=== PATIENT | male | born 1935 | race Caucasian/White ===

== ENCOUNTER 2017-07-14 20:30 | Emergency (ER) | payer MEDICARE ==
[~2017-07-14] VITALS: Ht 177.8 cm; Wt 90.1 kg
[2017-07-14 20:56] LABS: HEMATOCRIT 40.9 % (39.2-51.8); HEMOGLOBIN 13.8 g/dL (13.7-18.0); WHITE BLOOD COUNT 11.1 x10^3/uL (3.4-10)
[2017-07-14] MEDS ORDERED: ALPR-475 PO (21:48)
[2017-07-14] MEDS ORDERED: CLOP75TA52 PO (21:48)
[2017-07-14] MEDS ORDERED: AMLO10TA4 PO (21:48)
[2017-07-14] MEDS ORDERED: LEVO175T36 PO (21:48)
[2017-07-14] MEDS ORDERED: ATOR80TA PO (21:48)
[2017-07-14] MEDS ORDERED: HYDR12.58 PO (21:48)
[2017-07-14] MEDS ORDERED: ASPI-515 PO (21:48)
[2017-07-14] MEDS ORDERED: SERT100T PO (21:48)
[2017-07-14] MEDS ORDERED: TEST75GE TD (21:48)
[2017-07-14] MEDS ORDERED: LISI-170 PO (21:48)
[2017-07-14 22:28] VITALS: BP 158/60
[2017-07-14] MEDS ORDERED: BACITRACIN ZINC OINT 500U/GM, 0.9 GM ONE (22:36)
== END 2017-07-14 23:41 | disposition home or self-care (01) ==
LOC: ED 23:29
DX: S00.83XA Contusion of other part of head, initial encounter (principal); S00.12XA Contusion of left eyelid and periocular area, initial encounter; I10 Essential (primary) hypertension; W01.0XXA Fall on same level from slipping, tripping and stumbling without subsequent striking against object, initial encounter; Y93.89 Activity, other specified; Y92.009 Unspecified place in unspecified non-institutional (private) residence as the place of occurrence of the external cause; Y99.9 Unspecified external cause status
CPT/HCPCS: 36415; 70450; 70486; 72125; 85025; 85610; 99285

== ENCOUNTER 2019-03-17 12:22 | Inpatient (IN) | payer MEDICARE ==
[~2019-03-17] VITALS: Ht 177.8 cm; Wt 91.4 kg
[2019-03-17] VITALS (7 sets, daily range): BP systolic 108–142; BP diastolic 38–67
[~2019-03-17 12:22] MED LIST: ALPR-475 PO; AMLO10TA4 PO; ASPI-515 PO; ATOR80TA PO; CLOP75TA52 PO; HYDROCHLOROTH12.5 MG PO; LEVO175T36 PO; LISI-170 PO; SERT100T PO; TEST75GE TD
[2019-03-17] MEDS ORDERED: SODIUM CHLORIDE 0.9% 1,000ML IVBOLUS ONE (13:00)
[2019-03-17 13:18] LABS: MEAN CORPUSCULAR HEMOGLOBIN 22.8 pg (27.5-34.5); MEAN CORPUSCULAR VOLUME 75.8 fL (81-97); PLATELET COUNT 270 x10^3/uL (130-400); RED CELL DISTRIBUTION WIDTH 17.5 % (9.4-14.8)
--- NOTE | 2019-03-17 13:23 | NUR ---
Plan of care discussed with patient and his , verbalize understanding. Call may within reach.
[2019-03-17 13:27] LABS: PROTHROMBIN TIME 10.5 Seconds (9.6-11.5)
[2019-03-17 13:28] LABS: ALANINE AMINOTRANSFERASE 16 U/L (12-78); ALBUMIN 3.5 g/dL (3.4-5.0); ANION GAP 5 mmol/L (5-15); CALCIUM 8.9 mg/dL (8.5-10.1); CHLORIDE 111 mmol/L (98-107); CREATININE 1.81 mg/dL (0.7-1.3)
[2019-03-17 13:30] LABS: ALKALINE PHOSPHATASE 34 U/L (45-117); BASOPHILS # (AUTO) 0.02 x10^3/uL (0-0.1); BASOPHILS % (AUTO) 0 % (0-1); BILIRUBIN,TOTAL 0.3 mg/dL (0.2-1.0); EOSINOPHILS # (AUTO) 0.05 x10^3/uL (0-0.4); EOSINOPHILS % (AUTO) 1 % (1-7); LYMPHOCYTES # (AUTO) 1.83 x10^3/uL (1-3.4); LYMPHOCYTES % (AUTO) 30 % (22-44); MD SCAN; MONOCYTES # (AUTO) 0.63 x10^3/uL (0.2-0.8); MONOCYTES % (AUTO) 11 % (2-9); NEUTROPHILS # (AUTO) 3.53 x10^3/uL (1.8-6.8); NEUTROPHILS % (AUTO) 58 % (42-75); TOTAL PROTEIN 6.9 g/dL (6.4-8.2)
[2019-03-17] MEDS ORDERED: FERR324T18 PO (15:18)
[2019-03-17] MEDS ORDERED: ASCO10004 PO ×2 (15:18→15:21)
[2019-03-17] MEDS ORDERED: TRAZ50TA66 PO (15:18)
[2019-03-17] MEDS ORDERED: MULT-257 PO (15:18)
[2019-03-17] MEDS ORDERED: TURM500C4 PO (15:18)
[2019-03-17] MEDS ORDERED: ROSU20TA2 PO (15:18)
[2019-03-17] MEDS ORDERED: LUTEIN/ZEAXANTHIN PO (15:18)
[2019-03-17] MEDS ORDERED: LUTEIN/ZEAXANTHIN (15:18)
[2019-03-17] MEDS ORDERED: CALCIUM PEG (15:18)
[2019-03-17] MEDS ORDERED: CALCIUM PO (15:18)
[2019-03-17] MEDS ORDERED: VITAMIN D3 50 MCG PO (15:21)
[2019-03-17] MEDS ORDERED: VITAMIN B12 1000MCG PO (15:21)
--- NOTE | 2019-03-17 15:21 | NUR ---
Blood infusing, no complaints or requests at this time, see transfusion record for vital signs.
[2019-03-17] MEDS ORDERED: PANTOPRAZOLE 80 MG in SODIUM CHLORIDE 0.9% 50 ML IV ONE (15:30)
--- NOTE | 2019-03-17 16:10 | NUR ---
Patient denies symptoms at this time, does not appear to be in acute distress, blood infusing. Request sent to pharmacy for protonix infusion. Second IV established.
[2019-03-17] MEDS: PANTOPRAZOLE 80 MG in SODIUM CHLORIDE 0.9% 100 ML IV SCH (16:55)
[2019-03-17] MEDS ORDERED: OXYcodone IR 5MG TABLET PO PRN (17:00)
[2019-03-17] MEDS ORDERED: KETOROLAC 60 MG/2 ML IV PRN (17:00)
[2019-03-17] MEDS ORDERED: DOCUSATE 100 MG CAPSULE PO PRN (17:00)
[2019-03-17] MEDS ORDERED: ACETAMINOPHEN 325 MG TABLET PO PRN (17:00)
[2019-03-17] MEDS ORDERED: morphine SULFATE 10 MG/ML, 1ML IVPush PRN (17:00)
[2019-03-17] MEDS ORDERED: hydrALAzine 20 MG/ML, 1ML IVPush PRN (17:00)
[2019-03-17] MEDS ORDERED: ONDANSETRON 2MG/ML, 2ML IVPush PRN (17:00)
--- NOTE | 2019-03-17 18:08 | NUR ---
Patient resting in [facility] at this time watching television with his at bedside. Clear liquid tray provided. Call may within reach.
[2019-03-17 18:15] LABS: BASOPHILS # (AUTO) 0.03 x10^3/uL (0-0.1); BASOPHILS % (AUTO) 1 % (0-1); EOSINOPHILS # (AUTO) 0.06 x10^3/uL (0-0.4); EOSINOPHILS % (AUTO) 1 % (1-7); LYMPHOCYTES # (AUTO) 1.83 x10^3/uL (1-3.4); LYMPHOCYTES % (AUTO) 33 % (22-44); MD NO; MEAN CORPUSCULAR HEMOGLOBIN 24.5 pg (27.5-34.5); MEAN CORPUSCULAR HGB CONC 31.6 g/dL (33.2-36.2); MEAN CORPUSCULAR VOLUME 77.6 fL (81-97); MEAN PLATELET VOLUME 8.2 fL (7.4-10.4); MONOCYTES # (AUTO) 0.44 x10^3/uL (0.2-0.8); MONOCYTES % (AUTO) 8 % (2-9); NEUTROPHILS # (AUTO) 3.27 x10^3/uL (1.8-6.8); NEUTROPHILS % (AUTO) 58 % (42-75); PLATELET COUNT 219 x10^3/uL (130-400); RED CELL DISTRIBUTION WIDTH 18.6 % (9.4-14.8)
--- NOTE | 2019-03-17 19:45 | NUR ---
PT STATES HE IS FEELING SLIGHTLY ANXIOUS. PT STATES HE HAS PREVIOUSLY TAKEN 0.5MG XANAX FOR THIS. [facility] KYLE WAS CONSULTED AND AGREES TO ORDERING XANAX. XANAX ADDED TO PTS MED LIST.
--- NOTE | 2019-03-17 20:44 | NUR ---
RECLINER WAS FOUND FOR PTS SPOUSE. PT AND SPOUSE MUCH APPRECIATIVE. POC DISCUSSED. PT REQUESTING A GREASY CHEESEBURGER . POC DISCUSSED. PT TOLERATING CLEAR LIQUID DIET AT THIS TIME. PT AWARE OF HIS MORNING PROCEDURES. PT AND SPOUSE DENY FURTHER NEEDS AT THIS TIME.
[2019-03-17] MEDS ORDERED: ALPR1TAB2 PO (20:48)
[2019-03-17] MEDS ORDERED: TRAZODONE 50MG TABLET ONE (20:52)
[2019-03-17] MEDS: ATORVASTATIN 80 MG TABLET PO SCH (20:54)
[2019-03-17] MEDS: TRAZODONE 50MG TABLET PO SCH (20:54)
[2019-03-17] MEDS ORDERED: SERTRALINE 100MG TABLET PO SCH (21:00)
[2019-03-17] MEDS ORDERED: LEVOTHYROXINE 175 MCG TABLET PO SCH (21:00)
[2019-03-17] MEDS: D5%-LACTATED RINGERS 1,000 ML IV SCH (23:59)
[2019-03-18] VITALS (7 sets, daily range): BP systolic 114–171; BP diastolic 40–68
[2019-03-18] MEDS: PANTOPRAZOLE 80 MG in SODIUM CHLORIDE 0.9% 100 ML IV SCH ×2 (00:53→14:58)
[2019-03-18] MEDS: D5%-LACTATED RINGERS 1,000 ML IV SCH ×4 (01:01→17:30)
[2019-03-18] MEDS ORDERED: ASPIRIN 325 MG TABLET EC PO SCH (06:00)
[2019-03-18 06:16] LABS: INTERNATIONAL NORMALIZED RATIO 1.08 (0.93-1.1); PROTHROMBIN TIME 11.3 Seconds (9.6-11.5)
[2019-03-18 06:23] LABS: BASOPHILS # (AUTO) 0.02 x10^3/uL (0-0.1); BASOPHILS % (AUTO) 0 % (0-1); EOSINOPHILS # (AUTO) 0.07 x10^3/uL (0-0.4); EOSINOPHILS % (AUTO) 2 % (1-7); LYMPHOCYTES # (AUTO) 1.61 x10^3/uL (1-3.4); LYMPHOCYTES % (AUTO) 33 % (22-44); MD NO; MEAN CORPUSCULAR HEMOGLOBIN 23.8 pg (27.5-34.5); MEAN CORPUSCULAR HGB CONC 30.9 g/dL (33.2-36.2); MEAN CORPUSCULAR VOLUME 77.2 fL (81-97); MEAN PLATELET VOLUME 7.9 fL (7.4-10.4); MONOCYTES # (AUTO) 0.45 x10^3/uL (0.2-0.8); MONOCYTES % (AUTO) 9 % (2-9); NEUTROPHILS # (AUTO) 2.75 x10^3/uL (1.8-6.8); NEUTROPHILS % (AUTO) 56 % (42-75); PLATELET COUNT 204 x10^3/uL (130-400); RED CELL DISTRIBUTION WIDTH 18.5 % (9.4-14.8)
[2019-03-18 06:23] LABS: CHLORIDE 113 mmol/L (98-107)
[2019-03-18 06:34] LABS: % IRON SATURATION 4 % (20-55); ALANINE AMINOTRANSFERASE 11 U/L (12-78); ALKALINE PHOSPHATASE 25 U/L (45-117); ANION GAP 5 mmol/L (5-15); BILIRUBIN,TOTAL 0.4 mg/dL (0.2-1.0); CALCIUM 8.2 mg/dL (8.5-10.1); IRON LEVEL 12 mcg/dL (65-175); TOTAL IRON BINDING CAPACITY 325 mcg/dL (250-450); TOTAL PROTEIN 5.8 g/dL (6.4-8.2)
[2019-03-18] MEDS ORDERED: TEMPLATE NON-FORMULARY MED. (Ascorbic Acid** (Vitamin C**) 1,000 MG) PO SCH (09:00)
[2019-03-18] MEDS: MULTIVITAMIN 1 TABLET PO SCH (09:00)
[2019-03-18] MEDS: ASCORBIC ACID 500 MG TABLET PO SCH (09:00)
[2019-03-18] MEDS ORDERED: MIDAZOLAM 1 MG/ML, 2ML ONE (12:40)
[2019-03-18] MEDS ORDERED: FENTANYL PF 100 MCG/2ML ONE (12:40)
[2019-03-18] MEDS ORDERED: PROPOFOL 10 MG/ML, 20ML ONE (13:11)
[2019-03-18] MEDS ORDERED: PHENYLEPHRINE 10 MG/ML ONE (13:11)
[2019-03-18] MEDS ORDERED: FENTANYL PF 100 MCG/2ML IV PRN (14:00)
[2019-03-18] MEDS ORDERED: ONDANSETRON 2MG/ML, 2ML IV PRN (14:00)
[2019-03-18] MEDS ORDERED: EPHEDRINE 50 MG/ML, 1ML IVPush PRN (14:00)
[2019-03-18] MEDS ORDERED: HALOPERIDOL 5 MG/ML IV PRN (14:00)
[2019-03-18] MEDS ORDERED: HYDROmorphone 2 MG/ML, 1ML IVPush PRN (14:00)
[2019-03-18] MEDS ORDERED: OXYcodone 5 MG/5 ML ORAL.SOL UDC PO PRN (14:00)
[2019-03-18] MEDS ORDERED: MEPERIDINE/PF 25MG/0.5ML IVPush PRN (14:00)
[2019-03-18] MEDS ORDERED: hydrALAzine 20 MG/ML, 1ML IV PRN (14:00)
[2019-03-18] MEDS ORDERED: LEVOTHYROXINE 150 MCG TABLET PO SCH (21:00)
[2019-03-18 21:32] LABS: BASOPHILS # (AUTO) 0.05 x10^3/uL (0-0.1); BASOPHILS % (AUTO) 1 % (0-1); EOSINOPHILS % (AUTO) 1 % (1-7); LYMPHOCYTES # (AUTO) 1.98 x10^3/uL (1-3.4); LYMPHOCYTES % (AUTO) 27 % (22-44); MD NO; MEAN CORPUSCULAR HEMOGLOBIN 25.2 pg (27.5-34.5); MEAN CORPUSCULAR HGB CONC 31.4 g/dL (33.2-36.2); MEAN PLATELET VOLUME 7.9 fL (7.4-10.4); MONOCYTES % (AUTO) 8 % (2-9); NEUTROPHILS # (AUTO) 4.61 x10^3/uL (1.8-6.8); NEUTROPHILS % (AUTO) 63 % (42-75); PLATELET COUNT 216 x10^3/uL (130-400); RED BLOOD COUNT 3.22 x10^6/uL (4.38-5.82); RED CELL DISTRIBUTION WIDTH 19.7 % (9.4-14.8)
[2019-03-18] MEDS: ATORVASTATIN 80 MG TABLET PO SCH (22:18)
[2019-03-18] MEDS: SERTRALINE 100MG TABLET PO SCH (22:18)
[2019-03-18] MEDS: TRAZODONE 50MG TABLET PO SCH (22:18)
[2019-03-18] MEDS: LISINOPRIL 20 MG TABLET PO SCH (22:47)
[2019-03-19] MEDS: PANTOPRAZOLE 80 MG in SODIUM CHLORIDE 0.9% 100 ML IV SCH ×2 (01:02→10:24)
[2019-03-19 01:07] VITALS: BP 155/63
[2019-03-19] MEDS: D5%-LACTATED RINGERS 1,000 ML IV SCH (01:11)
[2019-03-19 08:01] VITALS: BP 126/68
[2019-03-19] MEDS: AMLODIPINE 5 MG TABLET PO SCH (08:32)
[2019-03-19] MEDS: ASCORBIC ACID 500 MG TABLET PO SCH (08:33)
[2019-03-19] MEDS: MULTIVITAMIN 1 TABLET PO SCH (08:33)
[2019-03-19] MEDS: LISINOPRIL 20 MG TABLET PO SCH ×2 (08:33→20:25)
[2019-03-19] MEDS: AMLODIPINE 10 MG TAB PO SCH (08:34)
[2019-03-19 09:25] LABS: BASOPHILS % (AUTO) 0 % (0-1); EOSINOPHILS % (AUTO) 2 % (1-7); LYMPHOCYTES # (AUTO) 1.43 x10^3/uL (1-3.4); LYMPHOCYTES % (AUTO) 22 % (22-44); MD NO; MEAN CORPUSCULAR HEMOGLOBIN 24.4 pg (27.5-34.5); MEAN CORPUSCULAR HGB CONC 31.2 g/dL (33.2-36.2); MEAN CORPUSCULAR VOLUME 78.2 fL (81-97); MEAN PLATELET VOLUME 8.1 fL (7.4-10.4); MONOCYTES # (AUTO) 0.57 x10^3/uL (0.2-0.8); MONOCYTES % (AUTO) 9 % (2-9); NEUTROPHILS # (AUTO) 4.46 x10^3/uL (1.8-6.8); NEUTROPHILS % (AUTO) 68 % (42-75); PLATELET COUNT 210 x10^3/uL (130-400); RED BLOOD COUNT 3.74 x10^6/uL (4.38-5.82); RED CELL DISTRIBUTION WIDTH 19.9 % (9.4-14.8)
[2019-03-19 09:30] LABS: % IRON SATURATION 4 % (20-55); ALANINE AMINOTRANSFERASE 16 U/L (12-78); ALBUMIN 3.3 g/dL (3.4-5.0); ANION GAP 5 mmol/L (5-15); CALCIUM 8.5 mg/dL (8.5-10.1); CHLORIDE 111 mmol/L (98-107); IRON LEVEL 15 mcg/dL (65-175); TOTAL IRON BINDING CAPACITY 372 mcg/dL (250-450)
[2019-03-19 09:34] LABS: ALKALINE PHOSPHATASE 39 U/L (45-117); BILIRUBIN,TOTAL 0.5 mg/dL (0.2-1.0); TOTAL PROTEIN 6.6 g/dL (6.4-8.2)
[2019-03-19 15:11] VITALS: BP 102/62
[2019-03-19] MEDS: IRON SUCROSE COMPLEX 100MG/5ML IV SCH (15:21)
[2019-03-19 19:20] VITALS: BP 159/60
[2019-03-19] MEDS: TRAZODONE 50MG TABLET PO SCH (20:25)
[2019-03-19] MEDS: ATORVASTATIN 80 MG TABLET PO SCH (20:25)
[2019-03-19] MEDS: SERTRALINE 100MG TABLET PO SCH (20:26)
[2019-03-19] MEDS ORDERED: SERTRALINE 100MG TABLET PO SCH (21:00)
[2019-03-19] MEDS ORDERED: LEVOTHYROXINE 175 MCG TABLET PO SCH (21:00)
[2019-03-20 04:28] VITALS: BP 155/53
[2019-03-20] MEDS ORDERED: OMEPRAZOLE 20 MG CAPSULE.DR PO SCH (06:00)
[2019-03-20 07:17] VITALS: BP 167/70
[2019-03-20] MEDS: LISINOPRIL 20 MG TABLET PO SCH (08:59)
[2019-03-20] MEDS: ASCORBIC ACID 500 MG TABLET PO SCH (08:59)
[2019-03-20] MEDS: MULTIVITAMIN 1 TABLET PO SCH (08:59)
[2019-03-20] MEDS: AMLODIPINE 10 MG TAB PO SCH (08:59)
[2019-03-20] MEDS: IRON SUCROSE COMPLEX 100MG/5ML IV SCH (09:00)
[2019-03-20] MEDS: AMLODIPINE 5 MG TABLET PO SCH (09:00)
[2019-03-20 10:01] LABS: BASOPHILS # (AUTO) 0.03 x10^3/uL (0-0.1); BASOPHILS % (AUTO) 0 % (0-1); EOSINOPHILS # (AUTO) 0.06 x10^3/uL (0-0.4); EOSINOPHILS % (AUTO) 1 % (1-7); LYMPHOCYTES # (AUTO) 1.92 x10^3/uL (1-3.4); LYMPHOCYTES % (AUTO) 24 % (22-44); MD NO; MEAN CORPUSCULAR HEMOGLOBIN 24.1 pg (27.5-34.5); MEAN CORPUSCULAR HGB CONC 30.8 g/dL (33.2-36.2); MEAN CORPUSCULAR VOLUME 78.3 fL (81-97); MEAN PLATELET VOLUME 7.9 fL (7.4-10.4); MONOCYTES # (AUTO) 0.62 x10^3/uL (0.2-0.8); MONOCYTES % (AUTO) 8 % (2-9); NEUTROPHILS # (AUTO) 5.21 x10^3/uL (1.8-6.8); NEUTROPHILS % (AUTO) 66 % (42-75); PLATELET COUNT 231 x10^3/uL (130-400); RED BLOOD COUNT 3.86 x10^6/uL (4.38-5.82); RED CELL DISTRIBUTION WIDTH 20.6 % (9.4-14.8)
[2019-03-20 13:28] VITALS: BP 115/71
[2019-03-20] MEDS ORDERED: IRON100V IV (14:13)
[2019-03-20] MEDS ORDERED: OMEP-110 PO (14:21)
[2019-03-21] MEDS ORDERED: RESV1TAB2 PO (09:43)
== END 2019-03-20 15:45 | disposition home or self-care (01) | DRG 377 ==
LOC: OR 13:48 → EDIP 13:49 → OR 15:08 → 3NE 21:52 → DCLOUNGE 03-20 15:05
PROVIDERS: ADMIT Internal Medicine; ATTEND Internal Medicine
PROC: 30233N1 Transfusion of Nonautologous Red Blood Cells into Peripheral Vein, Percutaneous Approach (ICD-10-PCS; principal; 2019-03-17)
PROC: 0DB68ZX Excision of Stomach, Via Natural or Artificial Opening Endoscopic, Diagnostic (ICD-10-PCS; 2019-03-18)
DX: K92.1 Melena (principal); N17.0 Acute kidney failure with tubular necrosis; D62 Acute posthemorrhagic anemia; I13.0 Hypertensive heart and chronic kidney disease with heart failure and stage 1 through stage 4 chronic kidney disease, or unspecified chronic kidney disease; I50.32 Chronic diastolic (congestive) heart failure; D50.9 Iron deficiency anemia, unspecified; N18.3 Chronic kidney disease, stage 3 (moderate); E78.5 Hyperlipidemia, unspecified; F41.9 Anxiety disorder, unspecified; E89.0 Postprocedural hypothyroidism; F32.9 Major depressive disorder, single episode, unspecified; I73.9 Peripheral vascular disease, unspecified; K21.9 Gastro-esophageal reflux disease without esophagitis; K31.9 Disease of stomach and duodenum, unspecified; Z79.899 Other long term (current) drug therapy; Z79.82 Long term (current) use of aspirin; Z79.02 Long term (current) use of antithrombotics/antiplatelets; Z80.1 Family history of malignant neoplasm of trachea, bronchus and lung; Z85.46 Personal history of malignant neoplasm of prostate; Z85.850 Personal history of malignant neoplasm of thyroid; Z86.011 Personal history of benign neoplasm of the brain; Z86.711 Personal history of pulmonary embolism; Z86.718 Personal history of other venous thrombosis and embolism; Z87.442 Personal history of urinary calculi; Z87.891 Personal history of nicotine dependence; Z90.49 Acquired absence of other specified parts of digestive tract
CPT/HCPCS: 36415; 80053; 82607; 82728; 82784; 83516; 83540; 83550; 83735; 84100; 85025; 85610; 85730; 86255; 86850; 86900; 86923; 88305; 88342; 93005; 96361; 96365; G0378; J1756; J2250; J2704; J3010; C9113; J2370; J7030; J7121; P9016

== ENCOUNTER 2019-03-21 12:01 | Inpatient (IN) | payer MEDICARE ==
[~2019-03-21] VITALS: Ht 177.8 cm; Wt 92.7 kg
[~2019-03-21 12:01] MED LIST changes: +ALPR1TAB2 PO; +ASCO10004 PO; +CALCIUM PEG; +CALCIUM PO; +FERR324T18 PO; +IRON100V IV; +LUTEIN/ZEAXANTHIN; +LUTEIN/ZEAXANTHIN PO; +MULT-257 PO; +OMEP-110 PO; +RESV1TAB2 PO; +ROSU20TA2 PO; +TRAZ50TA66 PO; +TURM500C4 PO; +VITAMIN B12 1000MCG PO; +VITAMIN D3 50 MCG PO
[2019-03-21 12:52] LABS: BASOPHILS # (AUTO) 0.08 x10^3/uL (0-0.1); BASOPHILS % (AUTO) 1 % (0-1); EOSINOPHILS # (AUTO) 0.02 x10^3/uL (0-0.4); EOSINOPHILS % (AUTO) 0 % (1-7); LYMPHOCYTES # (AUTO) 1.24 x10^3/uL (1-3.4); LYMPHOCYTES % (AUTO) 15 % (22-44); MD NO; MEAN CORPUSCULAR HEMOGLOBIN 24.1 pg (27.5-34.5); MEAN CORPUSCULAR HGB CONC 30.8 g/dL (33.2-36.2); MEAN CORPUSCULAR VOLUME 78.3 fL (81-97); MEAN PLATELET VOLUME 8.3 fL (7.4-10.4); MONOCYTES # (AUTO) 0.64 x10^3/uL (0.2-0.8); MONOCYTES % (AUTO) 7 % (2-9); NEUTROPHILS # (AUTO) 6.58 x10^3/uL (1.8-6.8); NEUTROPHILS % (AUTO) 77 % (42-75); PLATELET COUNT 233 x10^3/uL (130-400); RED BLOOD COUNT 3.87 x10^6/uL (4.38-5.82); RED CELL DISTRIBUTION WIDTH 21.3 % (9.4-14.8)
[2019-03-21 13:05] LABS: ALANINE AMINOTRANSFERASE 10 U/L (12-78); ALBUMIN 3.2 g/dL (3.4-5.0); ANION GAP 7 mmol/L (5-15); CALCIUM 8.6 mg/dL (8.5-10.1); CHLORIDE 108 mmol/L (98-107); CREATININE 2.29 mg/dL (0.7-1.3)
[2019-03-21 13:12] LABS: ALKALINE PHOSPHATASE 34 U/L (45-117); BILIRUBIN,TOTAL 0.2 mg/dL (0.2-1.0); TOTAL PROTEIN 6.4 g/dL (6.4-8.2); TROPONIN I 0.035 ng/mL (0.000-0.045)
--- NOTE | 2019-03-21 13:26 | NUR ---
LUNCH RN: PIV PLACED AT THIS TIME.
--- NOTE | 2019-03-21 13:58 | NUR ---
Justen mccord provided for pt per ED MD order and pt request. Pt appreciative.
[2019-03-21] MEDS ORDERED: SODIUM CHLORIDE 0.9% 1,000ML IVBOLUS ONE (14:30)
--- NOTE | 2019-03-21 14:32 | NUR ---
Provided report to UMBERTO Lamb. All questions answered. Pt ready to transfer to floor from ED.
--- NOTE | 2019-03-21 14:56 | NUR ---
Pt transfered from ED to floor. Pt left with all personal belongings.
[2019-03-21] MEDS: D5%-0.45% NACL 1,000 ML IV SCH (15:05)
[2019-03-21] MEDS ORDERED: ONDANSETRON 2MG/ML, 2ML IVPush PRN (15:30)
[2019-03-21] MEDS ORDERED: ONDANSETRON ODT 4 MG PO PRN (15:30)
[2019-03-21] MEDS: PLEASE ENTER HEIGHT AND WEIGHT MC SCH ×2 (15:30→23:30)
[2019-03-21] MEDS ORDERED: LABETALOL 5MG/ML, 20ML IVPush PRN (15:30)
[2019-03-21] MEDS ORDERED: POLYETHYLENE GLYCOL 17 GM PACKET PO PRN (15:30)
[2019-03-21 16:00] VITALS: BP 106/63
[2019-03-21 20:55] VITALS: BP_SYST 113; BP_SYST 177; BP_DIAS 68; BP_DIAS 70
[2019-03-21] MEDS ORDERED: LEVOTHYROXINE 175 MCG TABLET PO SCH (21:00)
[2019-03-21] MEDS ORDERED: CLOPIDOGREL 75 MG TABLET PO SCH (21:00)
[2019-03-21] MEDS ORDERED: LEVOTHYROXINE 100 MCG TABLET ONE (21:51)
[2019-03-21] MEDS ORDERED: LEVOTHYROXINE 75 MCG TABLET ONE (21:51)
[2019-03-21] MEDS: ATORVASTATIN 80 MG TABLET PO SCH (21:57)
[2019-03-21] MEDS: TRAZODONE 50MG TABLET PO SCH (21:59)
[2019-03-21] MEDS: SERTRALINE 100MG TABLET PO SCH (21:59)
[2019-03-21 23:53] LABS: CREATININE,URINE RANDOM 81.2 mg/dL
[2019-03-22] MEDS: D5%-0.45% NACL 1,000 ML IV SCH ×2 (01:00→11:45)
[2019-03-22 01:12] VITALS: BP_SYST 107; BP_SYST 158; BP_DIAS 54; BP_DIAS 62
[2019-03-22 05:19] LABS: BASOPHILS # (AUTO) 0.02 x10^3/uL (0-0.1); BASOPHILS % (AUTO) 0 % (0-1); EOSINOPHILS # (AUTO) 0.13 x10^3/uL (0-0.4); EOSINOPHILS % (AUTO) 2 % (1-7); LYMPHOCYTES # (AUTO) 1.96 x10^3/uL (1-3.4); LYMPHOCYTES % (AUTO) 29 % (22-44); MD NO; MEAN CORPUSCULAR HEMOGLOBIN 24.7 pg (27.5-34.5); MEAN CORPUSCULAR HGB CONC 31.5 g/dL (33.2-36.2); MEAN CORPUSCULAR VOLUME 78.7 fL (81-97); MEAN PLATELET VOLUME 8.8 fL (7.4-10.4); MONOCYTES % (AUTO) 9 % (2-9); NEUTROPHILS # (AUTO) 4.16 x10^3/uL (1.8-6.8); NEUTROPHILS % (AUTO) 61 % (42-75); PLATELET COUNT 202 x10^3/uL (130-400); RED BLOOD COUNT 3.07 x10^6/uL (4.38-5.82); RED CELL DISTRIBUTION WIDTH 20.8 % (9.4-14.8)
[2019-03-22 05:26] LABS: CHLORIDE 113 mmol/L (98-107)
[2019-03-22] MEDS: OMEPRAZOLE 20 MG CAPSULE.DR PO SCH (05:34)
[2019-03-22 05:42] LABS: ALANINE AMINOTRANSFERASE 12 U/L (12-78); ALBUMIN 2.6 g/dL (3.4-5.0); ALKALINE PHOSPHATASE 30 U/L (45-117); ANION GAP 5 mmol/L (5-15); BILIRUBIN,TOTAL 0.3 mg/dL (0.2-1.0); CALCIUM 7.8 mg/dL (8.5-10.1); TOTAL PROTEIN 5.4 g/dL (6.4-8.2)
[2019-03-22] MEDS ORDERED: PANTOPRAZOLE 40 MG IV IVPush SCH (07:30)
[2019-03-22 08:12] VITALS: BP_SYST 109; BP_SYST 168; BP_DIAS 60; BP_DIAS 69
[2019-03-22] MEDS: MULTIVITAMIN 1 TABLET PO SCH (08:28)
[2019-03-22] MEDS: CLOPIDOGREL 75 MG TABLET PO SCH (08:29)
[2019-03-22] MEDS: TESTOSTERONE 100 MG HOMETD SCH (08:29)
[2019-03-22] MEDS: SENNA/DOCUSATE TABLET PO SCH (08:29)
[2019-03-22] MEDS ORDERED: MAGNESIUM SULFATE PMX 2GM/50ML 50 ML IV ONE (08:30)
[2019-03-22] MEDS ORDERED: ALPRazolam 1MG TAB PO SCH (09:00)
[2019-03-22] MEDS ORDERED: LUTEIN PO SCH (09:00)
[2019-03-22] MEDS ORDERED: ZEAXANTHIN PO SCH (09:00)
[2019-03-22] MEDS ORDERED: IRON SUCROSE COMPLEX 100MG/5ML IV ONE (11:00)
[2019-03-22 14:08] VITALS: BP 166/62
[2019-03-22 14:09] VITALS: BP 110/65
[2019-03-22 17:01] LABS: ANION GAP 4 mmol/L (5-15); CALCIUM 8.3 mg/dL (8.5-10.1); CHLORIDE 112 mmol/L (98-107)
[2019-03-22 17:02] LABS: CREATININE 1.64 mg/dL (0.7-1.3)
[2019-03-22 19:40] LABS: OCCULT BLOOD NEGATIVE (NEGATIVE)
[2019-03-22 19:55] VITALS: BP 185/67
[2019-03-22 20:34] LABS: OCCULT BLOOD NEGATIVE (NEGATIVE)
[2019-03-22] MEDS ORDERED: LEVOTHYROXINE 200 MCG TABLET PO SCH (21:00)
[2019-03-22] MEDS: ATORVASTATIN 80 MG TABLET PO SCH (21:11)
[2019-03-22] MEDS: SERTRALINE 100MG TABLET PO SCH (21:11)
[2019-03-22] MEDS: TRAZODONE 50MG TABLET PO SCH (21:12)
[2019-03-23] VITALS (11 sets, daily range): BP systolic 136–193; BP diastolic 61–78
[2019-03-23] MEDS: D5%-0.45% NACL 1,000 ML IV SCH ×2 (01:47→14:30)
[2019-03-23 05:47] LABS: BASOPHILS # (AUTO) 0.03 x10^3/uL (0-0.1); BASOPHILS % (AUTO) 0 % (0-1); EOSINOPHILS # (AUTO) 0.12 x10^3/uL (0-0.4); EOSINOPHILS % (AUTO) 2 % (1-7); LYMPHOCYTES # (AUTO) 1.72 x10^3/uL (1-3.4); LYMPHOCYTES % (AUTO) 27 % (22-44); MD NO; MEAN CORPUSCULAR HEMOGLOBIN 24.3 pg (27.5-34.5); MEAN CORPUSCULAR VOLUME 78.5 fL (81-97); MEAN PLATELET VOLUME 8.2 fL (7.4-10.4); MONOCYTES # (AUTO) 0.59 x10^3/uL (0.2-0.8); MONOCYTES % (AUTO) 9 % (2-9); NEUTROPHILS # (AUTO) 4.01 x10^3/uL (1.8-6.8); NEUTROPHILS % (AUTO) 62 % (42-75); PLATELET COUNT 199 x10^3/uL (130-400); RED BLOOD COUNT 3.33 x10^6/uL (4.38-5.82); RED CELL DISTRIBUTION WIDTH 21.4 % (9.4-14.8)
[2019-03-23 05:56] LABS: ALBUMIN 2.9 g/dL (3.4-5.0); ANION GAP 5 mmol/L (5-15); CALCIUM 8.5 mg/dL (8.5-10.1); CHLORIDE 110 mmol/L (98-107); CREATININE 1.53 mg/dL (0.7-1.3)
[2019-03-23] MEDS: OMEPRAZOLE 20 MG CAPSULE.DR PO SCH (06:24)
[2019-03-23] MEDS ORDERED: AMLODIPINE 10 MG TAB PO SCH (09:00)
[2019-03-23] MEDS: CLOPIDOGREL 75 MG TABLET PO SCH (09:05)
[2019-03-23] MEDS: TESTOSTERONE 100 MG HOMETD SCH (09:05)
[2019-03-23] MEDS: SENNA/DOCUSATE TABLET PO SCH (09:05)
[2019-03-23] MEDS: MULTIVITAMIN 1 TABLET PO SCH (09:05)
[2019-03-23] MEDS ORDERED: IRON SUCROSE COMPLEX 100MG/5ML IV ONE (09:30)
[2019-03-23] MEDS ORDERED: LORazepam 0.5MG TABLET PO PRN (12:30)
[2019-03-23] MEDS ORDERED: AMLODIPINE 5 MG TABLET PO ONE (17:30)
[2019-03-23] MEDS: AMLODIPINE 5 MG TABLET PO SCH (17:39)
[2019-03-23] MEDS: ATORVASTATIN 80 MG TABLET PO SCH (21:48)
[2019-03-23] MEDS: TRAZODONE 50MG TABLET PO SCH (21:48)
[2019-03-23] MEDS: LISINOPRIL 10 MG TABLET PO SCH (21:49)
[2019-03-23] MEDS: SERTRALINE 100MG TABLET PO SCH (21:50)
[2019-03-24 00:10] VITALS: BP 163/62
[2019-03-24 00:11] VITALS: BP 132/74
[2019-03-24] MEDS: D5%-0.45% NACL 1,000 ML IV SCH ×2 (03:00→09:20)
[2019-03-24 05:11] VITALS: BP 164/66
[2019-03-24 05:12] VITALS: BP 140/60
[2019-03-24] MEDS ORDERED: LEVOTHYROXINE 175 MCG TABLET PO SCH (06:00)
[2019-03-24] MEDS: OMEPRAZOLE 20 MG CAPSULE.DR PO SCH (06:07)
[2019-03-24 06:20] LABS: BASOPHILS # (AUTO) 0.03 x10^3/uL (0-0.1); BASOPHILS % (AUTO) 1 % (0-1); EOSINOPHILS % (AUTO) 2 % (1-7); LYMPHOCYTES # (AUTO) 1.63 x10^3/uL (1-3.4); LYMPHOCYTES % (AUTO) 26 % (22-44); MD NO; MEAN CORPUSCULAR HEMOGLOBIN 25.1 pg (27.5-34.5); MEAN CORPUSCULAR HGB CONC 31.6 g/dL (33.2-36.2); MEAN CORPUSCULAR VOLUME 79.6 fL (81-97); MEAN PLATELET VOLUME 8.7 fL (7.4-10.4); MONOCYTES # (AUTO) 0.54 x10^3/uL (0.2-0.8); MONOCYTES % (AUTO) 9 % (2-9); NEUTROPHILS # (AUTO) 3.88 x10^3/uL (1.8-6.8); NEUTROPHILS % (AUTO) 63 % (42-75); PLATELET COUNT 208 x10^3/uL (130-400); RED BLOOD COUNT 3.41 x10^6/uL (4.38-5.82); RED CELL DISTRIBUTION WIDTH 21.6 % (9.4-14.8)
[2019-03-24 06:27] LABS: ALBUMIN 2.8 g/dL (3.4-5.0); ANION GAP 7 mmol/L (5-15); CALCIUM 8.3 mg/dL (8.5-10.1); CHLORIDE 111 mmol/L (98-107)
[2019-03-24 06:32] LABS: ALANINE AMINOTRANSFERASE 14 U/L (12-78); ALKALINE PHOSPHATASE 37 U/L (45-117); BILIRUBIN,TOTAL 0.4 mg/dL (0.2-1.0); CREATININE 1.49 mg/dL (0.7-1.3); TOTAL PROTEIN 5.9 g/dL (6.4-8.2)
[2019-03-24] MEDS: SENNA/DOCUSATE TABLET PO SCH (07:20)
[2019-03-24 07:49] VITALS: BP_SYST 138; BP_SYST 178; BP_DIAS 69; BP_DIAS 72
[2019-03-24] MEDS: LISINOPRIL 10 MG TABLET PO SCH (09:17)
[2019-03-24] MEDS: CLOPIDOGREL 75 MG TABLET PO SCH (09:17)
[2019-03-24] MEDS: AMLODIPINE 5 MG TABLET PO SCH (09:17)
[2019-03-24] MEDS: MULTIVITAMIN 1 TABLET PO SCH (09:17)
[2019-03-24] MEDS: TESTOSTERONE 100 MG HOMETD SCH (09:17)
[2019-03-24 11:40] VITALS: BP_SYST 135; BP_SYST 163; BP_DIAS 65; BP_DIAS 80
[2019-03-24] MEDS ORDERED: IRON SUCROSE COMPLEX 100MG/5ML IV ONE (12:00)
[2019-03-24] MEDS ORDERED: AMLO-150 PO (12:59)
[2019-03-24] MEDS ORDERED: LISI-170 PO (12:59)
[2019-03-24] MEDS ORDERED: ACETAMINOPHEN 325 MG TABLET PO PRN (13:30)
[2019-03-24] MEDS ORDERED: ACETAMINOPHEN 650 MG/20.3 ML UDC ONE (13:47)
[2019-03-24] MEDS ORDERED: ACETAMINOPHEN 325 MG/10.15 ML UDC PO ONE (14:00)
[2019-03-24] MEDS ORDERED: SIMETHICONE 80 MG CHEW TAB PO ONE (14:00)
[2019-03-24] MEDS ORDERED: LIDOCAINE JELLY 2%, 30GM TP ONE (14:00)
== END 2019-03-24 16:05 | disposition home or self-care (01) | DRG 73 ==
LOC: ED 12:16 → EDIP 13:22 → 4NOR 15:00 → DCLOUNGE 03-24 15:37
PROVIDERS: ADMIT Hospitalist; ATTEND Hospitalist
DX: G90.8 Other disorders of autonomic nervous system (principal); N17.0 Acute kidney failure with tubular necrosis; I13.0 Hypertensive heart and chronic kidney disease with heart failure and stage 1 through stage 4 chronic kidney disease, or unspecified chronic kidney disease; I50.32 Chronic diastolic (congestive) heart failure; N18.4 Chronic kidney disease, stage 4 (severe); I95.1 Orthostatic hypotension; D50.9 Iron deficiency anemia, unspecified; Z96.641 Presence of right artificial hip joint; E03.2 Hypothyroidism due to medicaments and other exogenous substances; E83.42 Hypomagnesemia; E78.5 Hyperlipidemia, unspecified; F32.9 Major depressive disorder, single episode, unspecified; Z53.20 Procedure and treatment not carried out because of patient's decision for unspecified reasons; Z79.899 Other long term (current) drug therapy; Z80.1 Family history of malignant neoplasm of trachea, bronchus and lung; Z85.46 Personal history of malignant neoplasm of prostate; Z85.850 Personal history of malignant neoplasm of thyroid; Z86.718 Personal history of other venous thrombosis and embolism; Z87.891 Personal history of nicotine dependence; Z86.711 Personal history of pulmonary embolism; Z90.89 Acquired absence of other organs
CPT/HCPCS: 36415; 71046; 76770; 80048; 80053; 82040; 82272; 82274; 82570; 82728; 83540; 83550; 83690; 83735; 84100; 84300; 84439; 84443; 84484; 85025; 93005; 93880; 99285; G0378; J1756; J3475; J7030

== ENCOUNTER 2020-07-19 08:34 | Day surgery (SDC) | payer MEDICARE ==
[~2020-07-19] VITALS: Ht 177.8 cm; Wt 86.8 kg
[~2020-07-19 08:34] MED LIST changes: -ALPR-475 PO; +ALPR0.5T7 PO; +AMLO-150 PO; +AMLO5TAB4 PO; +ASCO100018 PO; -ASCO10004 PO; +DEXA4TAB66 PO; +DIPH25CA26 PO; +FAMO-79 PO; +FURO-93 PO; +HYDR-3342 PO; +HYDR25TA6 PO; +LEVO200T5 PO; +TRAZ-175 PO; +clonidine TP
[2020-07-19 09:21] VITALS: BP 169/69
[2020-07-19] MEDS ORDERED: CYAN1TAB29 PO (09:50)
[2020-07-19] MEDS ORDERED: CALC1TAB58 PO (09:50)
[2020-07-19] MEDS ORDERED: UBID100C24 PO (09:50)
[2020-07-19] MEDS ORDERED: TUMERIC PO (09:50)
[2020-07-19] MEDS ORDERED: ASCO100018 PO (09:50)
[2020-07-19] MEDS ORDERED: ACET-1600 PO (09:50)
[2020-07-19] MEDS ORDERED: HYDR-3342 PO (09:50)
[2020-07-19] MEDS ORDERED: [UNRECOGNIZED DRUG - OTHER] PO (09:50)
[2020-07-19] MEDS ORDERED: LUTE1CAP3 PO (09:50)
[2020-07-19] MEDS ORDERED: FAMO-79 PO (09:50)
[2020-07-19 09:56] VITALS: BP 149/67
[2020-07-19] MEDS ORDERED: CHLORHEXIDINE 15 ML UDC MM ONE (10:00)
[2020-07-19] MEDS ORDERED: LACTATED RINGERS 1,000 ML IV SCH (10:00)
[2020-07-19] MEDS ORDERED: KETOROLAC 30 MG/1 ML ONE (10:30)
[2020-07-19] MEDS ORDERED: CEFAZOLIN 1,000 MG ONE (10:30)
[2020-07-19] MEDS ORDERED: ONDANSETRON 2MG/ML, 2ML ONE (10:30)
[2020-07-19] MEDS ORDERED: LIDOCAINE-MPF 1%, 2ML ONE (10:30)
[2020-07-19] MEDS ORDERED: PROPOFOL 10 MG/ML, 20ML ONE (10:30)
[2020-07-19] MEDS ORDERED: OMNIPAQUE 350 MG/ML, 50 ML BOTTLE ONE (11:11)
[2020-07-19] MEDS ORDERED: hydrALAzine 20 MG/ML, 1ML IV PRN (11:30)
[2020-07-19] MEDS ORDERED: ACETAMINOPHEN 325 MG TABLET PO PRN (11:30)
[2020-07-19] MEDS ORDERED: HYDROmorphone 1 MG/ML, 1ML INJ IVPush PRN (11:30)
[2020-07-19] MEDS ORDERED: HALOPERIDOL 5 MG/ML IV PRN (11:30)
[2020-07-19] MEDS ORDERED: FENTANYL PF 100 MCG/2ML IV PRN (11:30)
[2020-07-19] MEDS ORDERED: ONDANSETRON 2MG/ML, 2ML IVPush PRN (11:30)
[2020-07-19] MEDS ORDERED: LABETALOL 5MG/ML, 20ML IV PRN (11:30)
[2020-07-19] MEDS ORDERED: OXYcodone 5 MG/5 ML ORAL.SOL UDC PO PRN (11:30)
== END 2020-07-19 13:25 | disposition home or self-care (01) ==
LOC: OUT 08:34
PROVIDERS: ATTEND Urology
DX: N35.911 Unspecified urethral stricture, male, meatal (principal); Z20.828 Contact with and (suspected) exposure to other viral communicable diseases; N35.912 Unspecified bulbous urethral stricture, male; N30.41 Irradiation cystitis with hematuria; I10 Essential (primary) hypertension; Z79.01 Long term (current) use of anticoagulants; Z79.890 Hormone replacement therapy; Z79.899 Other long term (current) drug therapy; Z85.46 Personal history of malignant neoplasm of prostate; Z86.718 Personal history of other venous thrombosis and embolism; Z87.442 Personal history of urinary calculi; Z87.891 Personal history of nicotine dependence; Z88.8 Allergy status to other drugs, medicaments and biological substances; Z92.3 Personal history of irradiation; Z98.890 Other specified postprocedural states; Z80.1 Family history of malignant neoplasm of trachea, bronchus and lung
CPT/HCPCS: 52281; 74420; 87635; 88112; 93005; C1758; C1769; J0690; J1885; J2405; J2704; J7120; Q9967; C2625